=== PATIENT | male | born 1970 | race Caucasian/White ===

== ENCOUNTER 2017-05-05 18:52 | Inpatient (IN) | payer BC ==
[2017-05-05] MEDS ORDERED: Sodium Chloride 0.9% 1,000 ML IV ONE (19:17)
[2017-05-05] MEDS ORDERED: Ondansetron 4 MG/2 ML SDV IVPUSH STA (19:17)
[2017-05-05] MEDS ORDERED: Ondansetron 4 MG/2 ML SDV IVPUSH ONE (19:18)
--- NOTE | 2017-05-05 19:56 | EDM.PDOC ---
ED HPI GENERAL MEDICAL PROBLEM - General Chief Complaint: Gastrointestinal Problem Stated Complaint: DEHYDRATION Time Seen by Provider: 05/05/17 18:59 Source of Information: Reports: Patient, RN Notes Reviewed, Other (Coworker) History Limitations: Reports: No Limitations - History of Present Illness INITIAL COMMENTS - FREE TEXT/NARRATIVE: The patient states that he was seen at [facility] for upper abdominal pain on 04/27/2017. He states that he was given an IV banana bag, then discharged. He states that he was seen a second time at the [facility] this past Wednesday, , for continued upper abdominal pain. He states that blood work was performed, likely urine, a CT scan of the abdomen and pelvis, and an ultrasound of the right upper quadrant. He states that he was told that his gallbladder is enlarged, and they recommended that he follow-up with a surgeon. He states that he has been experiencing nausea and vomiting, muscle cramps, and shakiness since 05/02/2017. He states he had a syncopal episode today. He reports that he has had constipation. He denies diarrhea or urinary symptoms. No recent fever. The patient states that his symptoms are somewhat similar to when he had alcohol -induced pancreatitis in 2011. The patient takes Suboxone for opioid addiction. He states that he has been weaning himself down. He is prescribed 8 mg tablets, instructed to take three quarters of a pill daily, but he has self-decreased his daily dose to 1/4 to 1/ 3 of a tablet daily for the past month. He states, however, that due to perspiration, the tablets have dissolved in his pocket, and he does not know how many tablets he has remaining. He also states that he has vomited after taking his daily dose, and that he has therefore taken additional doses. For this reason, he Here in the ED, the patient is noted to be tremulous, and his oxygen saturation is 100% on room air. When asked about his drinking, the patient reports that he has been drinking heavily for about a week, excluding this past 05/01/2017, but including Wednesday and Wednesday, 05/03/2017. He has been into inpatient alcohol treatment for 21 days each, twice around 6 years ago, but he does not attend any outpatient alcohol treatment. He has never been hospitalized for his alcoholism, other than pancreatitis, and he has never had DTs. - Related Data Allergies Allergy/AdvReac Type Severity Reaction Status Date / Time morphine Allergy Vomiting Verified 05/05/17 19:01 Home Meds: Home Meds Buprenorphine HCl [Buprenorphine] 2 mg SL DAILY 05/05/17 [History] Past Medical History Gastrointestinal History: Reports: GERD Psychiatric History: Reports: Addiction (opioids), Anxiety - Past Surgical History GI Surgical History: Reports: Appendectomy Musculoskeletal Surgical History: Reports: Other (See Below) (RUE repair) Social & Family History - Tobacco Use Smoking Status *Q: Never Smoker - Caffeine Use Caffeine Use: Reports: None - Alcohol Use Alcohol Use History: Yes Alcohol Use Frequency: Binges - Recreational Drug Use Recreational Drug Use: Yes Drug Use in Last 12 Months: No Recreational Drug Type: Reports: Other (see below) (Opioids) - Living Situation & Occupation Living situation: Reports: , with Spouse, with Family (Daughter) 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 Denies: Diarrhea : Reports: No Symptoms. Denies: Dysuria Musculoskeletal: Reports: No Symptoms Skin: Reports: No Symptoms Neurological: Reports: No Symptoms Psychiatric: Reports: Anxiety Hematologic/Lymphatic: Reports: No Symptoms Immunologic: Reports: No Symptoms ED EXAM, GENERAL - Physical Exam Exam: See Below Exam Limited By: No Limitations General Appearance: Alert, WD/WN, Moderate Distress (Tremulousness, diaphoresis , halting speech) Eye Exam: Bilateral Eye: Normal Inspection Ears: Normal External Exam, Hearing Grossly Normal Nose: Normal Inspection, No Blood Throat/Mouth: Normal Inspection, Normal Lips, Normal Voice, No Airway Compromise Head: Atraumatic, Normocephalic Neck: Normal Inspection, Full Range of Motion Respiratory/Chest: No Respiratory Distress, Lungs Clear, Normal Breath Sounds, No Accessory Muscle Use Cardiovascular: Normal Peripheral Pulses, Regular Rate, Rhythm, No Gallop, No JVD, No Murmur, No Rub Peripheral Pulses: 4+: Radial (L), Radial (R) GI/Abdominal: Normal Bowel Sounds, Soft, Non-Tender (Including right upper quadrant and epigastric regions), No Organomegaly, No Distention, No Abnormal Bruit, No Mass (Male) Exam: Deferred Rectal (Males) Exam: Deferred Back Exam: Normal Inspection, Full Range of Motion. No: CVA Tenderness (L), CVA Tenderness (R) Extremities: Normal Inspection, Normal Range of Motion, No Pedal Edema, Normal Capillary Refill Neurological: Alert, Oriented, Normal Cognition, No Motor/Sensory Deficits, Other (Tremulous) Psychiatric: Normal Affect, Anxious Skin Exam: Warm, Intact, Normal Color, No Rash, Diaphoretic Lymphatic: No Adenopathy Course - Vital Signs Last Recorded V/S: Last Vital Signs Temp 36.7 C 05/05/17 19:02 Pulse 81 05/05/17 19:02 Resp BP 162/106 H 05/05/17 19:02 Pulse Ox 100 05/05/17 19:02 Orthostatic Blood Pressure [ 146/100 Standing] Orthostatic Blood Pressure [ 149/96 Sitting] Orthostatic Blood Pressure [ 139/94 Supine] - Orders/Labs/Meds Orders: Active Orders 24 hr Category Date Time Status Admission Status [Patient Status] [ADT] Routine ADT 05/05/17 22:30 Active Orthostatic Vital Signs [RC] STAT Care 05/05/17 19:16 Active Labs: Laboratory Tests 05/05/17 05/05/17 05/05/17 Range/Units 19:20 19:20 19:22 WBC 4.21 L (4.23-9.07) K/mm3 RBC 4.68 (4.63-6.08) M/mm3 Hgb 13.8 (13.7-17.5) gm/L Hct 39.8 L (40.1-51.0) % MCV 85.0 (79.0-92.2) fl MCH 29.5 (25.7-32.2) pg MCHC 34.7 (32.2-35.5) g/dl RDW Std Deviation 40.5 (35.1-43.9) fL Plt Count 78 L (163-337) K/mm3 MPV 9.8 (9.4-12.3) fl Neutrophils % (Manual) 83 H (40-60) % Band Neutrophils % 0 (0-10) % Lymphocytes % (Manual) 8 L (20-40) % Atypical Lymphs % 0 % Monocytes % (Manual) 8 (2-10) % Eosinophils % (Manual) 0 L (0.8-7.0) % Basophils % (Manual) 1 (0.2-1.2) Platelet Estimate Decreased Plt Morphology Comment Normal RBC Morph Comment Not Reportable Puncture Site Lt radial ABG pH 7.50 H (7.35-7.45) ABG pCO2 30.5 L (35.0-45.0) mmHg ABG pO2 89.0 (80.0-100.0) mmHg ABG HCO3 23.5 (22.0-26.0) meq/L ABG O2 Saturation 97.9 H (96.0-97.0) % ABG Base Excess 1.4 (-2-2.0) Panfilo Test Positive A-a Gradient 7 mmHg FiO2 21.00 (21.00-100.00) % Sodium 135 L (136-145) mEq/L Potassium 3.9 (3.5-5.1) mEq/L Chloride 97 L (98-107) mEq/L Carbon Dioxide 25 (21-32) mEq/L Anion Gap 16.9 H (5-15) BUN 19 H (7-18) mg/dL Creatinine 0.7 (0.7-1.3) mg/dL Est Cr Clr Drug Dosing TNP Estimated GFR (MDRD) > 60 (>60) mL/min BUN/Creatinine Ratio 27.1 H (14-18) Glucose 140 H (74-106) mg/dL Lactic Acid (0.4-2.0) mmol/L Calcium 9.7 (8.5-10.1) mg/dL Total Bilirubin 1.0 (0.2-1.0) mg/dL AST 70 H (15-37) U/L ALT 77 H (16-63) U/L Alkaline Phosphatase 216 H (46-116) U/L Total Protein 8.5 H (6.4-8.2) g/dl Albumin 4.9 (3.4-5.0) g/dl Globulin 3.6 gm/dL Albumin/Globulin Ratio 1.4 (1-2) Lipase 44 L (73-393) U/L Urine Color (Yellow) Urine Appearance (Clear) Urine pH (5.0-8.0) Ur Specific [place] (1.005-1.030) Urine Protein (Negative) Urine Glucose (UA) (Negative) Urine Ketones (Negative) Urine Occult Blood (Negative) Urine Nitrite (Negative) Urine Bilirubin (Negative) Urine Urobilinogen (0.2-1.0) Ur Leukocyte Esterase (Negative) Urine RBC (0-5) /hpf Urine WBC (0-5) /hpf Ur Epithelial Cells (0-5) /hpf Urine Bacteria (FEW) /hpf Urine Mucus (FEW) /hpf Urine Opiates Screen (NEGATIVE) Ur Buprenorphine Scrn (NEGATIVE) Ur Oxycodone Screen (NEGATIVE) Urine Methadone Screen (NEGATIVE) Ur Propoxyphene Screen (NEGATIVE) Ur Barbiturates Screen (NEGATIVE) Ur Tricyclics Screen (NEGATIVE) Ur Phencyclidine Scrn (NEGATIVE) Ur Amphetamine Screen (NEGATIVE) U Methamphetamines Scrn (NEGATIVE) U Benzodiazepines Scrn (NEGATIVE) U Cocaine Metab Screen (NEGATIVE) U Marijuana (THC) Screen (NEGATIVE) Ethyl Alcohol 0.00 (0.00) gm% 05/05/17 05/05/17 05/05/17 Range/Units 19:30 19:40 19:40 WBC (4.23-9.07) K/mm3 RBC (4.63-6.08) M/mm3 Hgb (13.7-17.5) gm/L Hct (40.1-51.0) % MCV (79.0-92.2) fl MCH (25.7-32.2) pg MCHC (32.2-35.5) g/dl RDW Std Deviation (35.1-43.9) fL Plt Count (163-337) K/mm3 MPV (9.4-12.3) fl Neutrophils % (Manual) (40-60) % Band Neutrophils % (0-10) % Lymphocytes % (Manual) (20-40) % Atypical Lymphs % % Monocytes % (Manual) (2-10) % Eosinophils % (Manual) (0.8-7.0) % Basophils % (Manual) (0.2-1.2) Platelet Estimate Plt Morphology Comment RBC Morph Comment Puncture Site ABG pH (7.35-7.45) ABG pCO2 (35.0-45.0) mmHg ABG pO2 (80.0-100.0) mmHg ABG HCO3 (22.0-26.0) meq/L ABG O2 Saturation (96.0-97.0) % ABG Base Excess (-2-2.0) Panfilo Test A-a Gradient mmHg FiO2 (21.00-100.00) % Sodium (136-145) mEq/L Potassium (3.5-5.1) mEq/L Chloride (98-107) mEq/L Carbon Dioxide (21-32) mEq/L Anion Gap (5-15) BUN (7-18) mg/dL Creatinine (0.7-1.3) mg/dL Est Cr Clr Drug Dosing Estimated GFR (MDRD) (>60) mL/min BUN/Creatinine Ratio (14-18) Glucose (74-106) mg/dL Lactic Acid 0.8 (0.4-2.0) mmol/L Calcium (8.5-10.1) mg/dL Total Bilirubin (0.2-1.0) mg/dL AST (15-37) U/L ALT (16-63) U/L Alkaline Phosphatase (46-116) U/L Total Protein (6.4-8.2) g/dl Albumin (3.4-5.0) g/dl Globulin gm/dL Albumin/Globulin Ratio (1-2) Lipase (73-393) U/L Urine Color Ivy H (Yellow) Urine Appearance Clear (Clear) Urine pH 6.0 (5.0-8.0) Ur Specific [place] > or = 1.030 (1.005-1.030) Urine Protein 1+ H (Negative) Urine Glucose (UA) Negative (Negative) Urine Ketones 2+ H (Negative) Urine Occult Blood Negative (Negative) Urine Nitrite Negative (Negative) Urine Bilirubin 1+ H (Negative) Urine Urobilinogen 0.2 (0.2-1.0) Ur Leukocyte Esterase Negative (Negative) Urine RBC 0-5 (0-5) /hpf Urine WBC 0-5 (0-5) /hpf Ur Epithelial Cells 0-5 (0-5) /hpf Urine Bacteria Few (FEW) /hpf Urine Mucus Moderate H (FEW) /hpf Urine Opiates Screen Presumptive positive H (NEGATIVE) Ur Buprenorphine Scrn Presumptive positive H (NEGATIVE) Ur Oxycodone Screen Negative (NEGATIVE) Urine Methadone Screen Negative (NEGATIVE) Ur Propoxyphene Screen Negative (NEGATIVE) Ur Barbiturates Screen Negative (NEGATIVE) Ur Tricyclics Screen Negative (NEGATIVE) Ur Phencyclidine Scrn Negative (NEGATIVE) Ur Amphetamine Screen Negative (NEGATIVE) U Methamphetamines Scrn Negative (NEGATIVE) U Benzodiazepines Scrn Negative (NEGATIVE) U Cocaine Metab Screen Negative (NEGATIVE) U Marijuana (THC) Screen Negative (NEGATIVE) Ethyl Alcohol (0.00) gm% Meds: Medications Discontinued Medications Generic Name Dose Route Start Last Admin Trade Name Freq PRN Reason Stop Dose Admin Sodium Chloride 1,000 mls @ 999 mls/hr 05/05/17 19:17 05/05/17 19:28 Normal Saline IV 05/05/17 20:17 999 mls/hr ONETIME ONE Administration Ondansetron HCl 4 mg 05/05/17 19:17 05/05/17 19:28 Zofran IVPUSH 05/05/17 19:18 4 mg ONETIME STA Administration Ondansetron HCl 4 mg 05/05/17 19:18 05/05/17 19:42 Zofran IVPUSH 05/05/17 19:19 4 mg ONETIME ONE Administration - Re-Assessments/Exams Free Text/Narrative Re-Assessment/Exam: 05/05/17 19:56 The patient is not orthostatic, however, he reported dizziness when he stood. The patient's ABG represents an acute respiratory alkalosis. 05/05/17 22:16 Test results discussed with the patient. Today's workup confirms hyperventilation, but the patient is not dehydrated or intravascularly depleted. There is no evidence for pancreatitis, and with a benign abdominal exam, I do not suspect acute cholecystitis. I suspect that the patient may be suffering from a combination of alcohol withdrawal, opioid withdrawal, and untreated anxiety, with the predominance of his symptoms due to alcohol withdrawal. I discussed his case with Dr. Gonzalez, who is willing to admit him for alcohol withdrawal, however, if he is admitted, he will receive IV fluid, Zofran, and ( likely) a benzodiazepine, but he would not be receiving Suboxone or other opioids. Alternatively, I offered to discharge the patient home with a prescription for Zofran, which would allow him to eat, drink, and take his own Suboxone. The patient admitted that he is nearly out of Suboxone, and asked if I could prescribe him additional, which I cannot. The patient states that he does not have a ride until tomorrow, and is therefore willing to be admitted overnight. 05/05/17 22:29 Case again discussed with Dr. Gonzalez at 22:25. She will place the patient into observation. Departure - Departure Time of Disposition: 22:29 Disposition: Refer to Observation Condition: Fair Clinical Impression: Alcohol withdrawal, Opioid withdrawal, Hyperventilation syndrome - Discharge Information Referrals: PCP,None [Primary Care Provider] - - My Orders Last 24 Hours: My Active Orders 05/05/17 19:16 Orthostatic Vital Signs [RC] STAT 05/05/17 22:30 Admission Status [Patient Status] [ADT] Routine - Assessment/Plan Last 24 Hours: My Active Orders 05/05/17 19:16 Orthostatic Vital Signs [RC] STAT 05/05/17 22:30 Admission Status [Patient Status] [ADT] Routine
[2017-05-05] MEDS ORDERED: chlordiazePOXIDE 25 MG Cap PO ONE (23:21)
[2017-05-05] MEDS ORDERED: MVI, Adult with Vitamin K 10 ML SDV IV ONE (23:36)
[2017-05-05] MEDS: LORazepam 2 MG/ML MDV IVPUSH SCH (23:37)
[2017-05-05] MEDS ORDERED: MVI, Adult with Vitamin K 10 ML in Sodium Chloride 0.9% 1,000 ML IV SCH ×2 (23:45)
[2017-05-06] MEDS ORDERED: Sodium Chloride 0.9% 1,000 ML ONE (00:36)
[2017-05-06] MEDS: cloNIDine 0.1 MG Tab PO SCH ×4 (00:52→21:35)
[2017-05-06] MEDS: LORazepam 2 MG/ML MDV IVPUSH SCH ×6 (00:53→07:27)
[2017-05-06] MEDS ORDERED: Sodium Chloride 0.9% 1,000 ML IV SCH (06:29)
[2017-05-06] MEDS ORDERED: Metoprolol Tartrate 5 MG/5 ML SDV IVPUSH PRN (08:38)
[2017-05-06] MEDS ORDERED: Enoxaparin 40 MG/0.4 ML Syringe SUBCUT SCH (09:00)
[2017-05-06] MEDS ORDERED: chlordiazePOXIDE 25 MG Cap PO SCH (09:00)
[2017-05-06] MEDS: Folic Acid 1 MG Tab PO SCH (09:32)
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
[2017-05-06] MEDS ORDERED: Magnesium Sulfate/Water 2 GM in Premix Bag 1 BAG IV ONE ×2 (11:18→18:00)
[2017-05-06] MEDS ORDERED: chlordiazePOXIDE 25 MG Cap PO ONE (12:25)
[2017-05-06] MEDS: LORazepam 1 MG Tab PO SCH ×3 (12:30→20:48)
[2017-05-06] MEDS: chlordiazePOXIDE 25 MG Cap PO SCH ×2 (16:08→20:48)
[2017-05-06] MEDS: Thiamine 100 MG Tab PO SCH (20:48)
[2017-05-06] MEDS ORDERED: Ondansetron 4 MG Tab.DIS PO SCH (21:30)
[2017-05-06] MEDS: Ondansetron 4 MG Tab.DIS PO PRN (21:35)
[2017-05-07] MEDS: LORazepam 1 MG Tab PO SCH (00:06)
[2017-05-07] MEDS: cloNIDine 0.1 MG Tab PO SCH ×4 (01:45→21:18)
[2017-05-07] MEDS: chlordiazePOXIDE 25 MG Cap PO SCH ×3 (08:14→21:17)
[2017-05-07] MEDS: Folic Acid 1 MG Tab PO SCH (08:15)
[2017-05-07] MEDS ORDERED: Magnesium Sulfate/Water 2 GM in Premix Bag 1 BAG IV ONE (09:45)
[2017-05-07] MEDS ORDERED: Ibuprofen 600 MG Tab PO PRN (10:21)
[2017-05-07] MEDS: Potassium Chloride 20 MEQ Tab.ER PO SCH ×3 (10:24→21:18)
[2017-05-07] MEDS: Magnesium Oxide 400 MG Tab PO SCH ×2 (10:24→21:18)
[2017-05-07] MEDS: Ondansetron 4 MG Tab.DIS PO PRN (16:50)
[2017-05-07] MEDS: Sodium Chloride 0.9% 1,000 ML IV SCH ×3 (17:27→19:42)
[2017-05-07] MEDS: HYDROmorphone 0.5 MG/0.5 ML Syringe IVPUSH PRN ×4 (17:35→23:32)
--- NOTE | 2017-05-07 18:14 | PCM.PN ---
- General Info Date of Service: 05/07/17 Functional Status: Reports: ambulating, urinating - Review of Systems General: Reports: Weakness HEENT: Reports: no symptoms Pulmonary: Reports: no symptoms Cardiovascular: Reports: No Symptoms Gastrointestinal: Reports: No symptoms Genitourinary: Reports: no symptoms Musculoskeletal: Reports: no symptoms Skin: Reports: no symptoms Neurological: Reports: No Symptoms Psychiatric: Reports: confusion, anxiety - Patient Data Vitals - most recent: Last Vital Signs Temp 36.7 C 05/07/17 16:00 Pulse 60 05/07/17 12:00 Resp 18 05/07/17 16:00 BP 131/99 H 05/07/17 16:00 Pulse Ox 100 05/07/17 16:00 Weight - most recent: 81.647 kg I&O - last 24 hours: Intake & Output 05/07/17 05/07/17 05/07/17 06:59 14:59 22:59 Intake Total 500 420 400 Balance 500 420 400 Lab Results last 24 hrs: Laboratory Results - last 24 hr 05/07/17 Range/Units 13:10 Sodium 134 L (136-145) mEq/L Potassium 3.5 (3.5-5.1) mEq/L Chloride 99 (98-107) mEq/L Carbon Dioxide 26 (21-32) mEq/L Anion Gap 12.5 (5-15) BUN 13 (7-18) mg/dL Creatinine 0.9 (0.7-1.3) mg/dL Est Cr Clr Drug Dosing 103.64 mL/min Estimated GFR (MDRD) > 60 (>60) mL/min BUN/Creatinine Ratio 14.4 (14-18) Glucose 198 H (74-106) mg/dL Calcium 8.8 (8.5-10.1) mg/dL Med Orders - Current: Current Medications Chlordiazepoxide HCl (Librium) 50 mg PO TID [facility] Last Admin: 05/07/17 16:46 Dose: 50 mg Clonidine HCl (Catapres) 0.1 mg PO Q12HR [facility] Last Admin: 05/07/17 10:07 Dose: Not Given Folic Acid (Folic Acid) 1 mg PO DAILY [facility] Last Admin: 05/07/17 08:15 Dose: 1 mg Hydromorphone HCl (Dilaudid) 0.5 mg IVPUSH Q2H PRN PRN Reason: Abdominal Pain Last Admin: 05/07/17 17:35 Dose: 0.5 mg Sodium Chloride (Normal Saline) 1,000 mls @ 999 mls/hr IV ASDIRECTED [facility] Stop: 05/08/17 18:16 Last Admin: 05/07/17 17:27 Dose: 999 mls/hr Ibuprofen (Motrin) 600 mg PO Q8H PRN PRN Reason: PAIN Last Admin: 05/07/17 10:30 Dose: 600 mg Lorazepam (Ativan) 0 mg IVPUSH ASDIRECTED [facility] PRN Reason: Protocol Last Admin: 05/06/17 07:27 Dose: 2 mg Lorazepam (Ativan) 1 - 2 mg PO ASDIRECTED [facility] PRN Reason: Protocol Last Admin: 05/07/17 00:06 Dose: 2 mg Magnesium Oxide (Magnesium Oxide) 400 mg PO BID [facility] Last Admin: 05/07/17 10:24 Dose: 400 mg Nicotine (Habitrol) 21 mg TRDERM DAILY [facility] Ondansetron HCl (Zofran Odt) 4 mg PO Q8H PRN PRN Reason: Nausea/Vomiting Last Admin: 05/07/17 16:50 Dose: 4 mg Pantoprazole Sodium (Protonix) 40 mg PO DAILY@0700 [facility] Potassium Chloride (Klor-Con M20) 40 meq PO TID [facility] Stop: 05/08/17 10:01 Last Admin: 05/07/17 16:47 Dose: 40 meq Thiamine HCl (Vitamin B-1) 100 mg PO BEDTIME [facility] Last Admin: 05/06/17 20:48 Dose: 100 mg Discontinued Medications Chlordiazepoxide HCl (Librium) 25 mg PO ONETIME ONE Stop: 05/05/17 23:22 Last Admin: 05/05/17 23:37 Dose: 25 mg Chlordiazepoxide HCl (Librium) 25 mg PO TID [facility] Last Admin: 05/06/17 08:20 Dose: 25 mg Chlordiazepoxide HCl (Librium) 25 mg PO STAT ONE Stop: 05/06/17 12:26 Last Admin: 05/06/17 12:39 Dose: 25 mg Clonidine HCl (Catapres) 0.1 mg PO Q8H [facility] Last Admin: 05/07/17 08:19 Dose: Not Given Enoxaparin Sodium (Lovenox) 40 mg SUBCUT DAILY [facility] Last Admin: 05/06/17 09:32 Dose: Not Given Sodium Chloride (Normal Saline) 1,000 mls @ 999 mls/hr IV ONETIME ONE Stop: 05/05/17 20:17 Last Admin: 05/05/17 19:28 Dose: 999 mls/hr Sodium Chloride (Normal Saline) 1,000 mls @ 150 mls/hr IV ASDIRECTED [facility] Multivitamins/Minerals 10 ml/ (Sodium Chloride) 1,010 mls @ 150 mls/hr IV ASDIRECTED [facility] Stop: 05/06/17 06:28 Last Admin: 05/06/17 00:52 Dose: 150 mls/hr Sodium Chloride (Normal Saline) Confirm Administered Dose 1,000 mls @ as directed .ROUTE .STK-MED ONE Stop: 05/06/17 00:37 Last Admin: 05/06/17 00:56 Dose: Not Given Magnesium Sulfate 2 gm/ Premix 50 mls @ 25 mls/hr IV ONETIME ONE Stop: 05/06/17 13:17 Last Admin: 05/06/17 12:01 Dose: Not Given Magnesium Sulfate 2 gm/ Premix 50 mls @ 25 mls/hr IV ONETIME ONE Stop: 05/06/17 19:59 Magnesium Sulfate 2 gm/ Premix 50 mls @ 25 mls/hr IV ONETIME ONE Stop: 05/07/17 11:44 Metoprolol Tartrate (Lopressor) 5 mg IVPUSH Q4H PRN PRN Reason: heart rate Multivitamins/Minerals (M.V.I. Adult) 10 ml IV ONETIME ONE Stop: 05/05/17 23:37 Ondansetron HCl (Zofran) 4 mg IVPUSH ONETIME STA Stop: 05/05/17 19:18 Last Admin: 05/05/17 19:28 Dose: 4 mg Ondansetron HCl (Zofran) 4 mg IVPUSH ONETIME ONE Stop: 05/05/17 19:19 Last Admin: 05/05/17 19:42 Dose: 4 mg Ondansetron HCl (Zofran Odt) 4 mg PO Q8H [facility] - Exam Quality Assessment: DVT prophylaxis General: alert, oriented, no acute distress HEENT: Pupils equal, Pupils reactive, EOMI Neck: supple, trachea midline Lungs: Normal respiratory effort Cardiovascular: Regular Rate Abdomen: bowel sounds present, soft, no tenderness, no distension (Male) Exam: Deferred Back Exam: Normal Inspection Extremities: normal pulses Skin: warm Neurological: no new focal deficit Psy/Mental Status: alert, anxious - Problem List & Annotations (1) Alcohol withdrawal SNOMED Code(s): 261482338 Status: Acute Current Visit: Yes (2) Hyperventilation syndrome SNOMED Code(s): 639842824 Status: Acute Current Visit: Yes (3) Opioid withdrawal SNOMED Code(s): 77253737 Status: Acute Current Visit: Yes (4) Abdominal pain SNOMED Code(s): 80940184 Code(s): R10.9 - UNSPECIFIED ABDOMINAL PAIN Status: Acute Current Visit: No (5) Hypertension SNOMED Code(s): 74497240 Code(s): I10 - ESSENTIAL (PRIMARY) HYPERTENSION Status: Acute Current Visit: No (6) Right upper quadrant abdominal pain SNOMED Code(s): 461875490 Code(s): R10.11 - RIGHT UPPER QUADRANT PAIN Status: Acute Current Visit: No (7) Thrombocytopenia SNOMED Code(s): 673382754 Code(s): D69.6 - THROMBOCYTOPENIA, UNSPECIFIED Status: Acute Current Visit: No - Problem List Review Problem List Initiated/Reviewed/Updated: Yes - My Orders Last 24 Hours: My Active Orders 05/07/17 09:00 cloNIDine [Catapres] 0.1 mg PO Q12HR 05/07/17 10:00 Potassium Chloride [Klor-Con M20] 40 meq PO TID 05/07/17 10:15 Magnesium Oxide 400 mg PO BID 05/07/17 10:21 Ibuprofen [Motrin] 600 mg PO Q8H PRN 05/07/17 17:14 HYDROmorphone [Dilaudid] 0.5 mg IVPUSH Q2H PRN 05/07/17 17:15 Sodium Chloride 0.9% [Normal Saline] 1,000 ml IV ASDIRECTED 05/07/17 18:00 Nicotine [Habitrol] 21 mg TRDERM DAILY 05/07/17 Dinner Regular Diet [DIET] 05/08/17 10:30 Pantoprazole [ProTONIX] 40 mg PO DAILY@69905/10/17 07:00 CBC W/O DIFF,HEMOGRAM [HEME] MOTH@05/13/17 07:00 CBC W/O DIFF,HEMOGRAM [HEME] MOTH@00 05/17/17 07:00 CBC W/O DIFF,HEMOGRAM [HEME] MOTH@00 05/20/17 07:00 CBC W/O DIFF,HEMOGRAM [HEME] MOTH@00 05/24/17 07:00 CBC W/O DIFF,HEMOGRAM [HEME] MOTH@00 05/27/17 07:00 CBC W/O DIFF,HEMOGRAM [HEME] MOTH@699 - Plan Plan:: Impression: ETOH withdrawal; CIWA was elevated >20; original plan was adjusted after apparent marked withdrawal. Opiod addiction on Suboxone--->query structured program Nicotine addiction Abdominal discomfort--->reportedly abnormal CT abdomen/pelvis Patient reports GB disease, will obtain results. Chronic GERD Plan: CIWA protocol Increase Librium/Ativan as needed. Court Order for 24 hour hold, )patient is unable to make informed decision and wants to leave while actively withdrawing). Appropriate pain meds Folic/Thiamine/MVI IVF Electrolyte replacement Psych/SA consults GI/DVT prophylaxis
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
[2017-05-07] MEDS: Nicotine 21 MG/24 Hr Patch TRDERM SCH (18:22)
[2017-05-07] MEDS: Thiamine 100 MG Tab PO SCH (21:18)
[2017-05-07] MEDS: QUEtiapine 25 MG Tab PO SCH (21:18)
[2017-05-07] MEDS: LORazepam 2 MG/ML MDV IVPUSH SCH (21:19)
[2017-05-08] MEDS: LORazepam 2 MG/ML MDV IVPUSH SCH ×2 (01:14→05:15)
[2017-05-08] MEDS: HYDROmorphone 0.5 MG/0.5 ML Syringe IVPUSH PRN ×4 (01:35→08:39)
[2017-05-08] MEDS: Sodium Chloride 0.9% 1,000 ML IV SCH ×3 (03:19→18:56)
[2017-05-08] MEDS: chlordiazePOXIDE 25 MG Cap PO SCH ×3 (08:38→20:57)
[2017-05-08] MEDS: Nicotine 21 MG/24 Hr Patch TRDERM SCH (08:38)
[2017-05-08] MEDS: Pantoprazole 40 MG Tab.CR PO SCH ×2 (08:38→09:55)
[2017-05-08] MEDS: cloNIDine 0.1 MG Tab PO SCH ×2 (09:30→20:57)
[2017-05-08] MEDS: Folic Acid 1 MG Tab PO SCH (09:31)
[2017-05-08] MEDS: Potassium Chloride 20 MEQ Tab.ER PO SCH (09:31)
[2017-05-08] MEDS: Magnesium Oxide 400 MG Tab PO SCH ×2 (09:31→20:57)
[2017-05-08] MEDS ORDERED: HYDROmorphone 1 MG/ML Syringe IVPUSH PRN (10:58)
[2017-05-08] MEDS ORDERED: Ketorolac 30 MG/ML SDV IVPUSH ONE (11:30)
[2017-05-08] MEDS ORDERED: Magnesium Sulfate/Water 2 GM in Premix Bag 1 BAG IV ONE (14:54)
--- NOTE | 2017-05-08 15:04 | PCM.PN ---
- General Info Date of Service: 05/08/17 Functional Status: Reports: pain controlled, tolerating diet, ambulating, urinating - Review of Systems General: Reports: No Symptoms HEENT: Reports: no symptoms Pulmonary: Reports: no symptoms Cardiovascular: Reports: No Symptoms Gastrointestinal: Reports: Abdominal pain (after eating a cheese burger) Genitourinary: Reports: no symptoms Musculoskeletal: Reports: no symptoms Skin: Reports: no symptoms Neurological: Reports: No Symptoms Psychiatric: Reports: no symptoms - Patient Data Vitals - most recent: Last Vital Signs Temp 36.4 C 05/08/17 12:00 Pulse 47 L 05/08/17 12:00 Resp 16 05/08/17 12:00 BP 135/99 H 05/08/17 12:00 Pulse Ox 98 05/08/17 12:00 Weight - most recent: 81.647 kg I&O - last 24 hours: Intake & Output 05/08/17 05/08/17 05/08/17 06:59 14:59 22:59 Intake Total 3354 0 Output Total 900 Balance 2454 0 Med Orders - Current: Current Medications Chlordiazepoxide HCl (Librium) 25 mg PO TID [facility] Last Admin: 05/08/17 14:58 Dose: 25 mg Clonidine HCl (Catapres) 0.1 mg PO Q12HR [facility] Last Admin: 05/08/17 09:30 Dose: 0.1 mg Folic Acid (Folic Acid) 1 mg PO DAILY [facility] Last Admin: 05/08/17 09:31 Dose: 1 mg Sodium Chloride (Normal Saline) 1,000 mls @ 125 mls/hr IV ASDIRECTED [facility] Last Admin: 05/08/17 10:45 Dose: 125 mls/hr Magnesium Sulfate 2 gm/ Premix 50 mls @ 25 mls/hr IV ONETIME ONE Stop: 05/08/17 16:53 Magnesium Sulfate 2 gm/ Premix 50 mls @ 25 mls/hr IV ONETIME ONE Stop: 05/09/17 09:59 Ketorolac Tromethamine (Toradol) 30 mg IVPUSH Q6H [facility] Stop: 05/10/17 11:31 Lorazepam (Ativan) 0 mg IVPUSH ASDIRECTED [facility] PRN Reason: Protocol Last Admin: 05/08/17 05:15 Dose: 1 mg Lorazepam (Ativan) 1 - 2 mg PO ASDIRECTED [facility] PRN Reason: Protocol Last Admin: 05/07/17 00:06 Dose: 2 mg Magnesium Oxide (Magnesium Oxide) 400 mg PO BID [facility] Last Admin: 05/08/17 09:31 Dose: 400 mg Nicotine (Habitrol) 21 mg TRDERM DAILY [facility] Last Admin: 05/08/17 08:38 Dose: 21 mg Ondansetron HCl (Zofran Odt) 4 mg PO Q8H PRN PRN Reason: Nausea/Vomiting Last Admin: 05/07/17 16:50 Dose: 4 mg Pantoprazole Sodium (Protonix) 40 mg PO DAILY@0700 [facility] Last Admin: 05/08/17 09:55 Dose: Not Given Quetiapine Fumarate (Seroquel) 25 mg PO BEDTIME [facility] Last Admin: 05/07/17 21:18 Dose: 25 mg Thiamine HCl (Vitamin B-1) 100 mg PO BEDTIME [facility] Last Admin: 05/07/17 21:18 Dose: 100 mg Discontinued Medications Chlordiazepoxide HCl (Librium) 25 mg PO ONETIME ONE Stop: 05/05/17 23:22 Last Admin: 05/05/17 23:37 Dose: 25 mg Chlordiazepoxide HCl (Librium) 25 mg PO TID [facility] Last Admin: 05/06/17 08:20 Dose: 25 mg Chlordiazepoxide HCl (Librium) 50 mg PO TID [facility] Last Admin: 05/08/17 08:38 Dose: 50 mg Chlordiazepoxide HCl (Librium) 25 mg PO STAT ONE Stop: 05/06/17 12:26 Last Admin: 05/06/17 12:39 Dose: 25 mg Clonidine HCl (Catapres) 0.1 mg PO Q8H [facility] Last Admin: 05/07/17 08:19 Dose: Not Given Enoxaparin Sodium (Lovenox) 40 mg SUBCUT DAILY [facility] Last Admin: 05/06/17 09:32 Dose: Not Given Hydromorphone HCl (Dilaudid) 0.5 mg IVPUSH Q2H PRN PRN Reason: Abdominal Pain Last Admin: 05/08/17 08:39 Dose: 0.5 mg Hydromorphone HCl (Dilaudid) 1 mg IVPUSH Q8H PRN PRN Reason: Abdominal Pain Sodium Chloride (Normal Saline) 1,000 mls @ 999 mls/hr IV ONETIME ONE Stop: 05/05/17 20:17 Last Admin: 05/05/17 19:28 Dose: 999 mls/hr Sodium Chloride (Normal Saline) 1,000 mls @ 150 mls/hr IV ASDIRECTED [facility] Multivitamins/Minerals 10 ml/ (Sodium Chloride) 1,010 mls @ 150 mls/hr IV ASDIRECTED [facility] Stop: 05/06/17 06:28 Last Admin: 05/06/17 00:52 Dose: 150 mls/hr Sodium Chloride (Normal Saline) Confirm Administered Dose 1,000 mls @ as directed .ROUTE .STK-MED ONE Stop: 05/06/17 00:37 Last Admin: 05/06/17 00:56 Dose: Not Given Magnesium Sulfate 2 gm/ Premix 50 mls @ 25 mls/hr IV ONETIME ONE Stop: 05/06/17 13:17 Last Admin: 05/06/17 12:01 Dose: Not Given Magnesium Sulfate 2 gm/ Premix 50 mls @ 25 mls/hr IV ONETIME ONE Stop: 05/06/17 19:59 Magnesium Sulfate 2 gm/ Premix 50 mls @ 25 mls/hr IV ONETIME ONE Stop: 05/07/17 11:44 Sodium Chloride (Normal Saline) 1,000 mls @ 999 mls/hr IV ASDIRECTED [facility] Stop: 05/08/17 18:16 Last Admin: 05/08/17 03:19 Dose: 125 mls/hr Ibuprofen (Motrin) 600 mg PO Q8H PRN PRN Reason: PAIN Last Admin: 05/07/17 10:30 Dose: 600 mg Ketorolac Tromethamine (Toradol) 60 mg IVPUSH ONETIME ONE Stop: 05/08/17 11:31 Last Admin: 05/08/17 11:26 Dose: 60 mg Metoprolol Tartrate (Lopressor) 5 mg IVPUSH Q4H PRN PRN Reason: heart rate Multivitamins/Minerals (M.V.I. Adult) 10 ml IV ONETIME ONE Stop: 05/05/17 23:37 Ondansetron HCl (Zofran) 4 mg IVPUSH ONETIME STA Stop: 05/05/17 19:18 Last Admin: 05/05/17 19:28 Dose: 4 mg Ondansetron HCl (Zofran) 4 mg IVPUSH ONETIME ONE Stop: 05/05/17 19:19 Last Admin: 05/05/17 19:42 Dose: 4 mg Ondansetron HCl (Zofran Odt) 4 mg PO Q8H [facility] Potassium Chloride (Klor-Con M20) 40 meq PO TID [facility] Stop: 05/08/17 10:01 Last Admin: 05/08/17 09:31 Dose: 40 meq - Exam Quality Assessment: supplemental oxygen, DVT prophylaxis General: alert, oriented, cooperative, no acute distress HEENT: Pupils equal, Pupils reactive, EOMI Neck: supple, trachea midline Lungs: Normal respiratory effort Cardiovascular: Regular Rate Abdomen: bowel sounds present, soft, no tenderness, no distension (Male) Exam: Deferred Back Exam: Normal Inspection Extremities: no edema, normal pulses Skin: warm Neurological: no new focal deficit, normal gait, normal speech Psy/Mental Status: alert, normal affect, normal mood - Problem List & Annotations (1) Alcohol withdrawal SNOMED Code(s): 302710019 Status: Acute Current Visit: Yes (2) Hyperventilation syndrome SNOMED Code(s): 004742839 Status: Acute Current Visit: Yes (3) Opioid withdrawal SNOMED Code(s): 74677545 Status: Acute Current Visit: Yes (4) Abdominal pain SNOMED Code(s): 21132707 Code(s): R10.9 - UNSPECIFIED ABDOMINAL PAIN Status: Acute Current Visit: No (5) Hypertension SNOMED Code(s): 88502034 Code(s): I10 - ESSENTIAL (PRIMARY) HYPERTENSION Status: Acute Current Visit: No (6) Right upper quadrant abdominal pain SNOMED Code(s): 682432457 Code(s): R10.11 - RIGHT UPPER QUADRANT PAIN Status: Acute Current Visit: No (7) Thrombocytopenia SNOMED Code(s): 525219556 Code(s): D69.6 - THROMBOCYTOPENIA, UNSPECIFIED Status: Acute Current Visit: No - Problem List Review Problem List Initiated/Reviewed/Updated: Yes - My Orders Last 24 Hours: My Active Orders 05/07/17 18:00 Nicotine [Habitrol] 21 mg TRDERM DAILY 05/07/17 21:00 QUEtiapine [SEROquel] 25 mg PO BEDTIME 05/07/17 Dinner Regular Diet [DIET] 05/08/17 03:30 Sodium Chloride 0.9% [Normal Saline] 1,000 ml IV ASDIRECTED 05/08/17 10:30 Pantoprazole [ProTONIX] 40 mg PO DAILY@0700 05/08/17 10:46 chlordiazePOXIDE [Librium] 25 mg PO TID 05/08/17 14:54 Magnesium Sulfate/Water [Magnesium Sulfate 2 GM in Water 50 ML] 2 gm Premix Bag 1 bag IV ONETIME 05/08/17 17:30 Ketorolac [Toradol] 30 mg IVPUSH Q6H 05/09/17 05:00 BMP [BASIC METABOLIC PANEL,BMP] [CHEM] DAILY CBC WITH AUTO DIFF [HEME] DAILY MAGNESIUM [CHEM] DAILY 05/09/17 08:00 Magnesium Sulfate/Water [Magnesium Sulfate 2 GM in Water 50 ML] 2 gm Premix Bag 1 bag IV ONETIME 05/10/17 05:00 BMP [BASIC METABOLIC PANEL,BMP] [CHEM] DAILY CBC WITH AUTO DIFF [HEME] DAILY MAGNESIUM [CHEM] DAILY 05/11/17 05:00 BMP [BASIC METABOLIC PANEL,BMP] [CHEM] DAILY CBC WITH AUTO DIFF [HEME] DAILY MAGNESIUM [CHEM] DAILY 05/12/17 05:00 BMP [BASIC METABOLIC PANEL,BMP] [CHEM] DAILY CBC WITH AUTO DIFF [HEME] DAILY MAGNESIUM [CHEM] DAILY - Plan Plan:: Impression: ETOH withdrawal; CIWA was elevated >20; original plan was adjusted after apparent marked withdrawal. Opiod addiction on Suboxone--->query structured program Nicotine addiction Abdominal discomfort--->reportedly abnormal CT abdomen/pelvis Patient reports GB disease, will obtain results. Chronic GERD Plan: CIWA protocol Taper off librium and pain meds=NSAIDS only Court Order for 24 hour hold, informed decision and wants to leave while actively withdrawing). Appropriate pain meds Folic/Thiamine/MVI IVF Electrolyte replacement Psych/SA consults GI/DVT prophylaxis
[2017-05-08] MEDS: Ketorolac 30 MG/ML SDV IVPUSH SCH ×2 (17:22→22:36)
[2017-05-08] MEDS: Thiamine 100 MG Tab PO SCH (20:56)
[2017-05-08] MEDS: QUEtiapine 25 MG Tab PO SCH (20:57)
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
[2017-05-09] MEDS: Sodium Chloride 0.9% 1,000 ML IV SCH (02:58)
[2017-05-09] MEDS: Ketorolac 30 MG/ML SDV IVPUSH SCH ×4 (05:32→23:01)
[2017-05-09] MEDS ORDERED: Magnesium Sulfate/Water 2 GM in Premix Bag 1 BAG IV ONE (08:00)
[2017-05-09] MEDS: chlordiazePOXIDE 25 MG Cap PO SCH (08:45)
[2017-05-09] MEDS: cloNIDine 0.1 MG Tab PO SCH (08:45)
[2017-05-09] MEDS: Pantoprazole 40 MG Tab.CR PO SCH (08:45)
[2017-05-09] MEDS: Folic Acid 1 MG Tab PO SCH (08:46)
[2017-05-09] MEDS: Magnesium Oxide 400 MG Tab PO SCH ×2 (08:46→20:30)
[2017-05-09] MEDS: Nicotine 21 MG/24 Hr Patch TRDERM SCH (08:47)
[2017-05-09] MEDS ORDERED: LORazepam 1 MG Tab PO SCH (11:44)
[2017-05-09] MEDS ORDERED: QUEtiapine 25 MG Tab PO SCH (11:45)
--- NOTE | 2017-05-09 12:16 | PCM.PN ---
- General Info Date of Service: 05/09/17 Functional Status: Reports: pain controlled, tolerating diet, ambulating, urinating - Review of Systems General: Reports: No Symptoms HEENT: Reports: no symptoms Pulmonary: Reports: no symptoms Cardiovascular: Reports: No Symptoms Gastrointestinal: Reports: No symptoms Genitourinary: Reports: no symptoms Musculoskeletal: Reports: no symptoms Skin: Reports: no symptoms Neurological: Reports: No Symptoms Psychiatric: Reports: no symptoms - Patient Data Vitals - most recent: Last Vital Signs Temp 36.1 C 05/09/17 12:00 Pulse 86 05/09/17 12:00 Resp 16 05/09/17 12:00 BP 119/83 05/09/17 12:00 Pulse Ox 100 05/09/17 12:00 Weight - most recent: 81.647 kg I&O - last 24 hours: Intake & Output 05/08/17 05/09/17 05/09/17 22:59 06:59 14:59 Intake Total 1040 2969 1620 Output Total 500 500 Balance 540 2969 1120 Lab Results last 24 hrs: Laboratory Results - last 24 hr 05/09/17 05/09/17 Range/Units 05:42 05:42 WBC 2.93 L (4.23-9.07) K/mm3 RBC 3.76 L (4.63-6.08) M/mm3 Hgb 11.4 L (13.7-17.5) gm/L Hct 33.0 L (40.1-51.0) % MCV 87.8 (79.0-92.2) fl MCH 30.3 (25.7-32.2) pg MCHC 34.5 (32.2-35.5) g/dl RDW Std Deviation 41.3 (35.1-43.9) fL Plt Count 92 L (163-337) K/mm3 MPV 9.6 (9.4-12.3) fl Neut % (Auto) 60.1 (34.0-67.9) % Lymph % (Auto) 24.9 (21.8-53.1) % Dawson % (Auto) 13.3 H (5.3-12.2) % Eos % (Auto) 1.4 (0.8-7.0) Baso % (Auto) 0.3 (0.1-1.2) % Neut # (Auto) 1.76 L (1.78-5.38) K/mm3 Lymph # (Auto) 0.73 L (1.32-3.57) K/mm3 Dawson # (Auto) 0.39 (0.30-0.82) K/mm3 Eos # (Auto) 0.04 (0.04-0.54) K/mm3 Baso # (Auto) 0.01 (0.01-0.08) K/mm3 Manual Slide Review Abnormal smear Sodium 140 (136-145) mEq/L Potassium 3.9 (3.5-5.1) mEq/L Chloride 106 (98-107) mEq/L Carbon Dioxide 24 (21-32) mEq/L Anion Gap 13.9 (5-15) BUN 11 (7-18) mg/dL Creatinine 0.8 (0.7-1.3) mg/dL Est Cr Clr Drug Dosing 116.60 mL/min Estimated GFR (MDRD) > 60 (>60) mL/min BUN/Creatinine Ratio 13.8 L (14-18) Glucose 133 H (74-106) mg/dL Calcium 8.4 L (8.5-10.1) mg/dL Magnesium 2.2 (1.8-2.4) mg/dl Med Orders - Current: Current Medications Chlordiazepoxide HCl (Librium) 10 mg PO BID [facility] Folic Acid (Folic Acid) 1 mg PO DAILY [facility] Last Admin: 05/09/17 08:46 Dose: 1 mg Ketorolac Tromethamine (Toradol) 30 mg IVPUSH Q6H [facility] Stop: 05/10/17 11:31 Last Admin: 05/09/17 11:17 Dose: 30 mg Lorazepam (Ativan) 0 mg IVPUSH ASDIRECTED [facility] PRN Reason: Protocol Last Admin: 05/08/17 05:15 Dose: 1 mg Lorazepam (Ativan) 1 mg PO ASDIRECTED [facility] PRN Reason: Protocol Magnesium Oxide (Magnesium Oxide) 400 mg PO BID [facility] Last Admin: 05/09/17 08:46 Dose: 400 mg Nicotine (Habitrol) 21 mg TRDERM DAILY [facility] Last Admin: 05/09/17 08:47 Dose: 21 mg Ondansetron HCl (Zofran Odt) 4 mg PO Q8H PRN PRN Reason: Nausea/Vomiting Last Admin: 05/07/17 16:50 Dose: 4 mg Pantoprazole Sodium (Protonix) 40 mg PO DAILY@0700 [facility] Last Admin: 05/09/17 08:45 Dose: 40 mg Quetiapine Fumarate (Seroquel) 50 mg PO BEDTIME [facility] Thiamine HCl (Vitamin B-1) 100 mg PO BEDTIME [facility] Last Admin: 05/08/17 20:56 Dose: 100 mg Discontinued Medications Chlordiazepoxide HCl (Librium) 25 mg PO ONETIME ONE Stop: 05/05/17 23:22 Last Admin: 05/05/17 23:37 Dose: 25 mg Chlordiazepoxide HCl (Librium) 25 mg PO TID [facility] Last Admin: 05/06/17 08:20 Dose: 25 mg Chlordiazepoxide HCl (Librium) 50 mg PO TID [facility] Last Admin: 05/08/17 08:38 Dose: 50 mg Chlordiazepoxide HCl (Librium) 25 mg PO STAT ONE Stop: 05/06/17 12:26 Last Admin: 05/06/17 12:39 Dose: 25 mg Chlordiazepoxide HCl (Librium) 25 mg PO TID [facility] Last Admin: 05/09/17 08:45 Dose: 25 mg Clonidine HCl (Catapres) 0.1 mg PO Q8H [facility] Last Admin: 05/07/17 08:19 Dose: Not Given Clonidine HCl (Catapres) 0.1 mg PO Q12HR [facility] Last Admin: 05/09/17 08:45 Dose: 0.1 mg Enoxaparin Sodium (Lovenox) 40 mg SUBCUT DAILY [facility] Last Admin: 05/06/17 09:32 Dose: Not Given Hydromorphone HCl (Dilaudid) 0.5 mg IVPUSH Q2H PRN PRN Reason: Abdominal Pain Last Admin: 05/08/17 08:39 Dose: 0.5 mg Hydromorphone HCl (Dilaudid) 1 mg IVPUSH Q8H PRN PRN Reason: Abdominal Pain Sodium Chloride (Normal Saline) 1,000 mls @ 999 mls/hr IV ONETIME ONE Stop: 05/05/17 20:17 Last Admin: 05/05/17 19:28 Dose: 999 mls/hr Sodium Chloride (Normal Saline) 1,000 mls @ 150 mls/hr IV ASDIRECTED [facility] Multivitamins/Minerals 10 ml/ (Sodium Chloride) 1,010 mls @ 150 mls/hr IV ASDIRECTED [facility] Stop: 05/06/17 06:28 Last Admin: 05/06/17 00:52 Dose: 150 mls/hr Sodium Chloride (Normal Saline) Confirm Administered Dose 1,000 mls @ as directed .ROUTE .STK-MED ONE Stop: 05/06/17 00:37 Last Admin: 05/06/17 00:56 Dose: Not Given Magnesium Sulfate 2 gm/ Premix 50 mls @ 25 mls/hr IV ONETIME ONE Stop: 05/06/17 13:17 Last Admin: 05/06/17 12:01 Dose: Not Given Magnesium Sulfate 2 gm/ Premix 50 mls @ 25 mls/hr IV ONETIME ONE Stop: 05/06/17 19:59 Magnesium Sulfate 2 gm/ Premix 50 mls @ 25 mls/hr IV ONETIME ONE Stop: 05/07/17 11:44 Sodium Chloride (Normal Saline) 1,000 mls @ 999 mls/hr IV ASDIRECTED [facility] Stop: 05/08/17 18:16 Last Admin: 05/08/17 03:19 Dose: 125 mls/hr Sodium Chloride (Normal Saline) 1,000 mls @ 125 mls/hr IV ASDIRECTED [facility] Last Admin: 05/09/17 02:58 Dose: 125 mls/hr Magnesium Sulfate 2 gm/ Premix 50 mls @ 25 mls/hr IV ONETIME ONE Stop: 05/08/17 16:53 Last Admin: 05/08/17 15:09 Dose: 25 mls/hr Magnesium Sulfate 2 gm/ Premix 50 mls @ 25 mls/hr IV ONETIME ONE Stop: 05/09/17 09:59 Last Admin: 05/09/17 09:00 Dose: Not Given Ibuprofen (Motrin) 600 mg PO Q8H PRN PRN Reason: PAIN Last Admin: 05/07/17 10:30 Dose: 600 mg Ketorolac Tromethamine (Toradol) 60 mg IVPUSH ONETIME ONE Stop: 05/08/17 11:31 Last Admin: 05/08/17 11:26 Dose: 60 mg Lorazepam (Ativan) 1 - 2 mg PO ASDIRECTED [facility] PRN Reason: Protocol Last Admin: 05/07/17 00:06 Dose: 2 mg Metoprolol Tartrate (Lopressor) 5 mg IVPUSH Q4H PRN PRN Reason: heart rate Multivitamins/Minerals (M.V.I. Adult) 10 ml IV ONETIME ONE Stop: 05/05/17 23:37 Ondansetron HCl (Zofran) 4 mg IVPUSH ONETIME STA Stop: 05/05/17 19:18 Last Admin: 05/05/17 19:28 Dose: 4 mg Ondansetron HCl (Zofran) 4 mg IVPUSH ONETIME ONE Stop: 05/05/17 19:19 Last Admin: 05/05/17 19:42 Dose: 4 mg Ondansetron HCl (Zofran Odt) 4 mg PO Q8H [facility] Potassium Chloride (Klor-Con M20) 40 meq PO TID [facility] Stop: 05/08/17 10:01 Last Admin: 05/08/17 09:31 Dose: 40 meq Quetiapine Fumarate (Seroquel) 25 mg PO BEDTIME [facility] Last Admin: 05/08/17 20:57 Dose: 25 mg - Exam Quality Assessment: DVT prophylaxis General: alert, oriented, cooperative, no acute distress HEENT: Pupils equal, Pupils reactive, EOMI Neck: supple, trachea midline Lungs: Normal respiratory effort Cardiovascular: Regular Rate, Bradycardia Abdomen: bowel sounds present, soft, no tenderness, no distension (Male) Exam: Deferred Back Exam: Normal Inspection Extremities: no edema, normal pulses Skin: warm Neurological: normal gait, normal speech Psy/Mental Status: alert, normal affect, normal mood - Problem List & Annotations (1) Alcohol withdrawal SNOMED Code(s): 359423962 Status: Acute Current Visit: Yes (2) Hyperventilation syndrome SNOMED Code(s): 758976415 Status: Acute Current Visit: Yes (3) Opioid withdrawal SNOMED Code(s): 96806845 Status: Acute Current Visit: Yes (4) Abdominal pain SNOMED Code(s): 97081223 Code(s): R10.9 - UNSPECIFIED ABDOMINAL PAIN Status: Acute Current Visit: No (5) Hypertension SNOMED Code(s): 99933541 Code(s): I10 - ESSENTIAL (PRIMARY) HYPERTENSION Status: Acute Current Visit: No (6) Right upper quadrant abdominal pain SNOMED Code(s): 508240838 Code(s): R10.11 - RIGHT UPPER QUADRANT PAIN Status: Acute Current Visit: No (7) Thrombocytopenia SNOMED Code(s): 592656978 Code(s): D69.6 - THROMBOCYTOPENIA, UNSPECIFIED Status: Acute Current Visit: No - Problem List Review Problem List Initiated/Reviewed/Updated: Yes - My Orders Last 24 Hours: My Active Orders 05/08/17 17:30 Ketorolac [Toradol] 30 mg IVPUSH Q6H 05/08/17 Dinner Cardiac [Heart Healthy Diet] [DIET] 05/09/17 09:43 Up ad Polly [RC] ASDIRECTED 05/09/17 11:44 LORazepam [Ativan] 1 mg PO ASDIRECTED 05/09/17 11:45 QUEtiapine [SEROquel] 50 mg PO BEDTIME 05/10/17 05:00 BMP [BASIC METABOLIC PANEL,BMP] [CHEM] DAILY CBC WITH AUTO DIFF [HEME] DAILY MAGNESIUM [CHEM] DAILY 05/10/17 09:00 chlordiazePOXIDE [Librium] 10 mg PO BID 05/11/17 05:00 BMP [BASIC METABOLIC PANEL,BMP] [CHEM] DAILY CBC WITH AUTO DIFF [HEME] DAILY MAGNESIUM [CHEM] DAILY 05/12/17 05:00 BMP [BASIC METABOLIC PANEL,BMP] [CHEM] DAILY CBC WITH AUTO DIFF [HEME] DAILY MAGNESIUM [CHEM] DAILY - Plan Plan:: Impression: ETOH withdrawal; CIWA was elevated >20; original plan was adjusted after apparent marked withdrawal. Opiod addiction on Suboxone--->query structured program Nicotine addiction Abdominal discomfort--->reportedly abnormal CT abdomen/pelvis Patient reports GB disease, will obtain results. Chronic GERD Plan: CIWA protocol Taper off librium and pain meds=NSAIDS only Court Order for 24 hour hold. GI MD suggestions provided include but not limited to Dr Karla Urias in [place], [place]. Electrolyte replacement SA consult with probable outpatient counseling Follow up with current Suboxone provider or may change to provider in the [place] area. GI/DVT prophylaxis
[2017-05-09] MEDS: Thiamine 100 MG Tab PO SCH (20:30)
[2017-05-10] MEDS: Ketorolac 30 MG/ML SDV IVPUSH SCH ×2 (05:21→11:40)
[2017-05-10] MEDS: Pantoprazole 40 MG Tab.CR PO SCH (06:21)
[2017-05-10] MEDS: Folic Acid 1 MG Tab PO SCH (08:05)
[2017-05-10] MEDS: Magnesium Oxide 400 MG Tab PO SCH (08:05)
[2017-05-10] MEDS: Nicotine 21 MG/24 Hr Patch TRDERM SCH (08:06)
--- NOTE | 2017-05-10 08:19 | CONS ---
CONSULTING PHYSICIAN: Michael Crystal MD DATE OF CONSULTATION: 05/06/2017 IDENTIFICATION: The patient is a 47-year-old male, who is admitted to the inpatient medical unit at [facility] in [place], [place] on 05/05/2017. He is seen for psychiatric evaluation. CHIEF COMPLAINT: "I did a good job for 5 years and then I lost my brother. I went to drinking." HISTORY OF PRESENT ILLNESS: The patient is a 47-year-old male, who is admitted to the inpatient MICU at [facility] on 05/05/2017 after presenting to the emergency room with complaints of nausea and vomiting. It was deemed by the ER staff that the patient was going through alcohol withdrawal. Evidently according to staff, the patient has been drinking about a 5th of whiskey a day for the past 30 days straight. When asked how much he has been drinking, the patient states that he last drank 48 hours ago and he only started drinking "a week and a half ago." He states he has only been drinking "maybe a pint or so" a day over the past [id number] and he states he relapsed because he was feeling bad that his brother killed himself. When asked when his brother took his life, he states "about 2 years ago up in [place]. He hung himself when they found them." He states that he wants to stop drinking and he notes "I know what I did was wrong" and states that it is his intention to get sober again once he is medically stabilized. He states he has had sustaining sobriety of 5 years and he had gone to AA in the past and the AA program has helped him quite a bit. He states his has been pretty upset with him since he started drinking again and he knows that he has to get back on track. He denies any suicidal or homicidal. He denies any psychotic, delusional, or paranoid symptoms. He does not feel that he needs any psychiatric medication at this point in time stating that if he gets sober he will be fine. Main issue at this point in time is "I can still feel a little nausea" and is wondering if something can be done to help in this regard, but otherwise he has no major complaints. MEDICATIONS: At the time of admission, none. Since being placed on the unit, the patient has been given Librium and Ativan and collateral information, and reports the patient does have a history of being on Suboxone therapy for possible opioid dependence. ALLERGIES TO MEDICATIONS: Morphine. PAST MEDICAL HISTORY: Hypertension. REVIEW OF SYSTEMS: Aside from cardiovascular and neuro, all other major organ systems are negative at this point in time for acute difficulties or complications. FAMILY, PSYCHIATRIC, AND CD HISTORY: The patient has a brother who struggled with depression and killed himself back in 2014. PAST PSYCHIATRIC AND CD HISTORY: The patient denies any previous psychiatric hospitalizations. He reports two chemical dependency treatments or detox admissions back in 2009. The patient is unclear, which they were. The patient has gone to and states this has helped him stay sober. His longest sobriety has been for 5 years. States most recently he has been drinking about a pint of whiskey a day. However, collateral information reports that the patient has been drinking a 5th of whiskey a day for the past 30 days. He denies any previous suicide attempts, self-injurious behaviors, or eating disorder history. Denies any abuse issues while being raised. Denies any past psychiatric medication history. SOCIAL HISTORY: The patient was born in [place], [place], raised in [place] and [facility]. He is a 2nd of 5 siblings and 4 brothers. The patient's parents were throughout his childhood and adolescence. Father is a pipe assembly worker and mother worked in a clinic. The patient has been x1 for 27 years. He has 1 son and 2 daughters from the marriage. His works as a financial services rep for the [employer]. The patient himself works out in the [employer]. He lives in [place], [place] working 2 weeks on in the [employer] and goes back home for 2 weeks. He stays in the [place] when he is working on the [employer]. He was in the [facility] for 2 years, received a general discharge. He denies any legal difficulties. 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 He enjoys ATV, walking, and spending time with his grand kids. MENTAL STATUS EXAM: The patient is a 47-year-old jittery white male in no apparent distress. Speech is regular rate and rhythm. The patient is cognitively oriented x3 to person, place, and time. There is no behavioral or psychomotor activities. Again, a little jittery but essentially within normal limits overall. There are no abnormal motor movements or tics observed. Gait and station are not observed. This patient is sitting on bed for the interview. Mood is okay. Affect is again jittery, but cooperative overall for the purposes of the inpatient consult. There is no behavioral or stated evidence of acute suicidal or homicidal ideation or acute psychotic, delusional, or paranoid symptoms. Thought processes are organized overall. There are no acute manic symptoms or loose associations evident. Judgment and insight appear unimpaired at this point in time. Motivation for help appears good. IMPRESSION: [place] I. 1. Alcohol dependence, F10.20. 2. Depression, not otherwise specified, F32.9. 3. Anxiety disorder, not otherwise specified, F41.9. 4. Rule out possible opioid dependence. [place] II: None. [place] III: 1. History of hypertension. 2. Symptoms of alcohol withdrawal. [place] IV: Severe. [place] V: 55. PLAN: 1. Sobriety. 2. AA rep to visit the patient while on inpatient medical unit. 3. Pastoral guidance. 4. CIWA protocol. 5. Thiamine supplementation. 6. Folate acidic supplementation. 7. CD consult. 8. Would recommend inpatient chemical dependency treatment going forward once the patient is medically stabilized if it is deemed that the patient is unable to maintain sobriety on his own by primary treating staff. 9. If the patient is medically stabilized and felt that he can maintain sobriety with the assistance of AA resources, he may be discharged back to the community as no psychiatric intervention appears necessary at this point in time. 10.We will continue follow up with the patient on an as needed basis while he remains on the inpatient MICU. 11.We will follow up with the patient sooner if any complications in the interim. 12.Crisis plan is in place. RACHEAL /[id number]
[2017-05-10] MEDS ORDERED: chlordiazePOXIDE 10 MG Cap PO SCH (09:00)
[2017-05-10] MEDS ORDERED: Magnesium Sulfate/Water 2 GM in Premix Bag 1 BAG IV ONE (09:23)
--- NOTE | 2017-05-10 09:47 | PCM.PN ---
- General Info Date of Service: 05/10/17 - Patient Data Vitals - most recent: Last Vital Signs Temp 36.3 C 05/10/17 07:54 Pulse 43 L 05/10/17 04:00 Resp 14 05/10/17 07:54 BP 142/94 H 05/10/17 07:54 Pulse Ox 98 05/10/17 07:54 Weight - most recent: 83.37 kg I&O - last 24 hours: Intake & Output 05/09/17 05/10/17 05/10/17 22:59 06:59 14:59 Intake Total 120 600 Output Total 300 Balance -180 600 Lab Results last 24 hrs: Laboratory Results - last 24 hr 05/10/17 05/10/17 Range/Units 05:20 05:20 WBC 3.46 L (4.23-9.07) K/mm3 RBC 4.01 L (4.63-6.08) M/mm3 Hgb 12.0 L (13.7-17.5) gm/L Hct 35.5 L (40.1-51.0) % MCV 88.5 (79.0-92.2) fl MCH 29.9 (25.7-32.2) pg MCHC 33.8 (32.2-35.5) g/dl RDW Std Deviation 42.2 (35.1-43.9) fL Plt Count 123 L (163-337) K/mm3 MPV 10.0 (9.4-12.3) fl Neut % (Auto) 60.7 (34.0-67.9) % Lymph % (Auto) 20.8 L (21.8-53.1) % [place] % (Auto) 15.0 H (5.3-12.2) % Eos % (Auto) 2.6 (0.8-7.0) Baso % (Auto) 0.6 (0.1-1.2) % Neut # (Auto) 2.10 (1.78-5.38) K/mm3 Lymph # (Auto) 0.72 L (1.32-3.57) K/mm3 [place] # (Auto) 0.52 (0.30-0.82) K/mm3 Eos # (Auto) 0.09 (0.04-0.54) K/mm3 Baso # (Auto) 0.02 (0.01-0.08) K/mm3 Sodium 141 (136-145) mEq/L Potassium 4.1 (3.5-5.1) mEq/L Chloride 106 (98-107) mEq/L Carbon Dioxide 25 (21-32) mEq/L Anion Gap 14.1 (5-15) BUN 13 (7-18) mg/dL Creatinine 0.8 (0.7-1.3) mg/dL Est Cr Clr Drug Dosing 116.60 mL/min Estimated GFR (MDRD) > 60 (>60) mL/min BUN/Creatinine Ratio 16.3 (14-18) Glucose 104 (74-106) mg/dL Calcium 8.4 L (8.5-10.1) mg/dL Magnesium 1.9 (1.8-2.4) mg/dl Med Orders - Current: Current Medications Chlordiazepoxide HCl (Librium) 10 mg PO BID [facility] Last Admin: 05/10/17 08:05 Dose: 10 mg Folic Acid (Folic Acid) 1 mg PO DAILY [facility] Last Admin: 05/10/17 08:05 Dose: 1 mg Magnesium Sulfate 2 gm/ Premix 50 mls @ 25 mls/hr IV ONETIME ONE Stop: 05/10/17 11:22 Ketorolac Tromethamine (Toradol) 30 mg IVPUSH Q6H [facility] Stop: 05/10/17 11:31 Last Admin: 05/10/17 05:21 Dose: 30 mg Lorazepam (Ativan) 0 mg IVPUSH ASDIRECTED [facility] PRN Reason: Protocol Last Admin: 05/08/17 05:15 Dose: 1 mg Lorazepam (Ativan) 1 mg PO ASDIRECTED [facility] PRN Reason: Protocol Magnesium Oxide (Magnesium Oxide) 400 mg PO BID [facility] Last Admin: 05/10/17 08:05 Dose: 400 mg Nicotine (Habitrol) 21 mg TRDERM DAILY [facility] Last Admin: 05/10/17 08:06 Dose: 21 mg Ondansetron HCl (Zofran Odt) 4 mg PO Q8H PRN PRN Reason: Nausea/Vomiting Last Admin: 05/07/17 16:50 Dose: 4 mg Pantoprazole Sodium (Protonix) 40 mg PO DAILY@0700 [facility] Last Admin: 05/10/17 06:21 Dose: 40 mg Quetiapine Fumarate (Seroquel) 50 mg PO BEDTIME [facility] Last Admin: 05/09/17 20:30 Dose: 50 mg Thiamine HCl (Vitamin B-1) 100 mg PO BEDTIME [facility] Last Admin: 05/09/17 20:30 Dose: 100 mg Discontinued Medications Chlordiazepoxide HCl (Librium) 25 mg PO ONETIME ONE Stop: 05/05/17 23:22 Last Admin: 05/05/17 23:37 Dose: 25 mg Chlordiazepoxide HCl (Librium) 25 mg PO TID [facility] Last Admin: 05/06/17 08:20 Dose: 25 mg Chlordiazepoxide HCl (Librium) 50 mg PO TID [facility] Last Admin: 05/08/17 08:38 Dose: 50 mg Chlordiazepoxide HCl (Librium) 25 mg PO STAT ONE Stop: 05/06/17 12:26 Last Admin: 05/06/17 12:39 Dose: 25 mg Chlordiazepoxide HCl (Librium) 25 mg PO TID [facility] Last Admin: 05/09/17 08:45 Dose: 25 mg Clonidine HCl (Catapres) 0.1 mg PO Q8H [facility] Last Admin: 05/07/17 08:19 Dose: Not Given Clonidine HCl (Catapres) 0.1 mg PO Q12HR [facility] Last Admin: 05/09/17 08:45 Dose: 0.1 mg Enoxaparin Sodium (Lovenox) 40 mg SUBCUT DAILY [facility] Last Admin: 05/06/17 09:32 Dose: Not Given Hydromorphone HCl (Dilaudid) 0.5 mg IVPUSH Q2H PRN PRN Reason: Abdominal Pain Last Admin: 05/08/17 08:39 Dose: 0.5 mg Hydromorphone HCl (Dilaudid) 1 mg IVPUSH Q8H PRN PRN Reason: Abdominal Pain Sodium Chloride (Normal Saline) 1,000 mls @ 999 mls/hr IV ONETIME ONE Stop: 05/05/17 20:17 Last Admin: 05/05/17 19:28 Dose: 999 mls/hr Sodium Chloride (Normal Saline) 1,000 mls @ 150 mls/hr IV ASDIRECTED [facility] Multivitamins/Minerals 10 ml/ (Sodium Chloride) 1,010 mls @ 150 mls/hr IV ASDIRECTED [facility] Stop: 05/06/17 06:28 Last Admin: 05/06/17 00:52 Dose: 150 mls/hr Sodium Chloride (Normal Saline) Confirm Administered Dose 1,000 mls @ as directed .ROUTE .STK-MED ONE Stop: 05/06/17 00:37 Last Admin: 05/06/17 00:56 Dose: Not Given Magnesium Sulfate 2 gm/ Premix 50 mls @ 25 mls/hr IV ONETIME ONE Stop: 05/06/17 13:17 Last Admin: 05/06/17 12:01 Dose: Not Given Magnesium Sulfate 2 gm/ Premix 50 mls @ 25 mls/hr IV ONETIME ONE Stop: 05/06/17 19:59 Magnesium Sulfate 2 gm/ Premix 50 mls @ 25 mls/hr IV ONETIME ONE Stop: 05/07/17 11:44 Sodium Chloride (Normal Saline) 1,000 mls @ 999 mls/hr IV ASDIRECTED [facility] Stop: 05/08/17 18:16 Last Admin: 05/08/17 03:19 Dose: 125 mls/hr Sodium Chloride (Normal Saline) 1,000 mls @ 125 mls/hr IV ASDIRECTED [facility] Last Admin: 05/09/17 02:58 Dose: 125 mls/hr Magnesium Sulfate 2 gm/ Premix 50 mls @ 25 mls/hr IV ONETIME ONE Stop: 05/08/17 16:53 Last Admin: 05/08/17 15:09 Dose: 25 mls/hr Magnesium Sulfate 2 gm/ Premix 50 mls @ 25 mls/hr IV ONETIME ONE Stop: 05/09/17 09:59 Last Admin: 05/09/17 09:00 Dose: Not Given Ibuprofen (Motrin) 600 mg PO Q8H PRN PRN Reason: PAIN Last Admin: 05/07/17 10:30 Dose: 600 mg Ketorolac Tromethamine (Toradol) 60 mg IVPUSH ONETIME ONE Stop: 05/08/17 11:31 Last Admin: 05/08/17 11:26 Dose: 60 mg Lorazepam (Ativan) 1 - 2 mg PO ASDIRECTED [facility] PRN Reason: Protocol Last Admin: 05/07/17 00:06 Dose: 2 mg Metoprolol Tartrate (Lopressor) 5 mg IVPUSH Q4H PRN PRN Reason: heart rate Multivitamins/Minerals (M.V.I. Adult) 10 ml IV ONETIME ONE Stop: 05/05/17 23:37 Ondansetron HCl (Zofran) 4 mg IVPUSH ONETIME STA Stop: 05/05/17 19:18 Last Admin: 05/05/17 19:28 Dose: 4 mg Ondansetron HCl (Zofran) 4 mg IVPUSH ONETIME ONE Stop: 05/05/17 19:19 Last Admin: 05/05/17 19:42 Dose: 4 mg Ondansetron HCl (Zofran Odt) 4 mg PO Q8H [facility] Potassium Chloride (Klor-Con M20) 40 meq PO TID [facility] Stop: 05/08/17 10:01 Last Admin: 05/08/17 09:31 Dose: 40 meq Quetiapine Fumarate (Seroquel) 25 mg PO BEDTIME [facility] Last Admin: 05/08/17 20:57 Dose: 25 mg - Problem List & Annotations (1) Alcohol withdrawal SNOMED Code(s): 514471697 Status: Acute Current Visit: Yes (2) Hyperventilation syndrome SNOMED Code(s): 416891996 Status: Acute Current Visit: Yes (3) Opioid withdrawal SNOMED Code(s): 90705961 Status: Acute Current Visit: Yes (4) Abdominal pain SNOMED Code(s): 62792152 Code(s): R10.9 - UNSPECIFIED ABDOMINAL PAIN Status: Acute Current Visit: No (5) Hypertension SNOMED Code(s): 38222602 Code(s): I10 - ESSENTIAL (PRIMARY) HYPERTENSION Status: Acute Current Visit: No (6) Right upper quadrant abdominal pain SNOMED Code(s): 710095175 Code(s): R10.11 - RIGHT UPPER QUADRANT PAIN Status: Acute Current Visit: No (7) Thrombocytopenia SNOMED Code(s): 960708283 Code(s): D69.6 - THROMBOCYTOPENIA, UNSPECIFIED Status: Acute Current Visit: No - My Orders Last 24 Hours: My Active Orders 05/09/17 09:43 Up ad Polly [RC] ASDIRECTED 05/09/17 11:44 LORazepam [Ativan] 1 mg PO ASDIRECTED 05/09/17 11:45 QUEtiapine [SEROquel] 50 mg PO BEDTIME 05/10/17 09:00 chlordiazePOXIDE [Librium] 10 mg PO BID 05/10/17 09:23 Magnesium Sulfate/Water [Magnesium Sulfate 2 GM in Water 50 ML] 2 gm Premix Bag 1 bag IV ONETIME 05/11/17 05:00 BMP [BASIC METABOLIC PANEL,BMP] [CHEM] DAILY CBC WITH AUTO DIFF [HEME] DAILY MAGNESIUM [CHEM] DAILY 05/12/17 05:00 BMP [BASIC METABOLIC PANEL,BMP] [CHEM] DAILY CBC WITH AUTO DIFF [HEME] DAILY MAGNESIUM [CHEM] DAILY - Plan Plan:: Impression: ETOH withdrawal; CIWA was elevated >20; original plan was adjusted after apparent marked withdrawal. Opiod addiction on Suboxone--->query structured program Nicotine addiction Abdominal discomfort--->reportedly abnormal CT abdomen/pelvis Patient reports GB disease, will obtain results. Chronic GERD Plan: CIWA protocol Taper off librium and pain meds=NSAIDS only Court Order for 24 hour hold. GI MD suggestions provided include but not limited to [facility], Dr Karla Dailey in [place], [place]. Electrolyte replacement SA consult with probable outpatient counseling Follow up with current Suboxone provider or may change to provider in the [place] area. GI/DVT prophylaxis
[2017-05-10] MEDS ORDERED: Pneumococcal Polyvalent-23 Vaccine 0.5 ML SDV IM ONE (12:00)
[2017-05-10] MEDS ORDERED: Diphtheria,Pertussis(Acell),Tetanus Vaccine 0.5 ML SDV inactive IM ONE (12:00)
[2017-05-10 13:03] VITALS: BP 127/95
--- NOTE | 2017-05-10 13:14 | PCM.DCSUM1 ---
Discharge Summary - Hospital Course Free Text/Narrative:: 47 year old male with substance abuse history presented to the ED with reportedly mild tremors; however was going through rosita withdrawal from ETOH. Has a history of Suboxone, acutely drank a fifth daily when off of work. Had moderate to severe abdominal pain, has a history of pancreatitis. Was seen by general surgeon, Sia Farooq; psychiatrist, Dr Michael Crystal; substance abuse counselor, Hill Ghosh during his hospitalization. Abdominal pain was managed with minimal narcotics, librium was used for ETOH withdrawal. He has been provided a substance abuse referral as an outpatient by Hill Ghosh, and supplied a GI physician for pancreatitis and additional neededs, the physician is Dr Stiven Dailey at [facility] in [place], [place]; office number is [phone]. An alternative for his current physician provider of Suboxone has also been provided by Hill Ghosh. He is expected to follow up as an outpatient at [facility] with Hill Ghosh. If he returns in a similar state of altered mental status from ETOH/drugs, he will be committed to an inpatient facility. Primary Dx ETOH abuse/dependence (acute on chronic) Narcotic dependence on Suboxone Acute ofn chronic pancreatitis Tobacco dependence Condition Stable Activity As tolerated Restrictions No ETOH Suboxone as prescribed only Work No restrictions, may return to work 05/11/17; work forms have been filled out. Diet Resume usual diet - Discharge Data Discharge Date: 05/10/17 Discharge Disposition: Home, Self-Care 01 Condition: Good - Discharge Diagnosis/Problem(s) (1) Alcohol withdrawal SNOMED Code(s): 697507156 Status: Acute Current Visit: Yes (2) Hyperventilation syndrome SNOMED Code(s): 119538430 Status: Acute Current Visit: Yes (3) Opioid withdrawal SNOMED Code(s): 19864928 Status: Acute Current Visit: Yes (4) Abdominal pain SNOMED Code(s): 47741374 ICD Code: R10.9 - UNSPECIFIED ABDOMINAL PAIN Status: Acute Current Visit : No (5) Hypertension SNOMED Code(s): 39504216 ICD Code: I10 - ESSENTIAL (PRIMARY) HYPERTENSION Status: Acute Current Visit: No (6) Right upper quadrant abdominal pain SNOMED Code(s): 445191158 ICD Code: R10.11 - RIGHT UPPER QUADRANT PAIN Status: Acute Current Visit : No (7) Thrombocytopenia SNOMED Code(s): 962173833 ICD Code: D69.6 - THROMBOCYTOPENIA, UNSPECIFIED Status: Acute Current Visit: No - Patient Summary/Data Consults: Consultations 05/06/17 08:35 Consult to Physical Therapy [PT Evaluation and Treatment] [CONS] Routine Consult to Technical Editor [CONS] Routine 05/06/17 08:36 Consult to Occupational Therapy [OT Evaluation and Treatment] [CONS] Routine 05/06/17 08:40 Consult for Substance Abuse [CONS] Routine 05/06/17 14:00 Consult to Physician [CONS] Routine 05/06/17 21:15 Consult to Spiritual Care [CONS] Routine - Patient Instructions Diet: Usual Diet as Tolerated Activity: As Tolerated Driving: May Drive Today Showering/Bathing: May Shower Notify Provider of: Nausea and/or Vomiting - Discharge Plan Home Medications: Home Meds Buprenorphine HCl [Buprenorphine] 8 mg SL DAILY 04/29/17 [History] Buprenorphine HCl [Buprenorphine] 2 mg SL DAILY 05/05/17 [History] Patient Handouts: Alcohol Use Disorder, Alcohol Intoxication, [id number], Alcohol Abuse and Nutrition, Alcohol Withdrawal, [id number] Referrals: PCP,None [Primary Care Provider] - - Discharge Summary/Plan Comment DC Time >30 min.: No - General Info Date of Service: 05/05/17 Functional Status: Reports: tolerating diet, ambulating, urinating - Review of Systems General: Reports: No Symptoms HEENT: Reports: no symptoms Pulmonary: Reports: no symptoms Cardiovascular: Reports: No Symptoms Gastrointestinal: Reports: No symptoms Genitourinary: Reports: no symptoms Musculoskeletal: Reports: no symptoms Skin: Reports: no symptoms Neurological: Reports: No Symptoms Psychiatric: Reports: no symptoms - Patient Data Vitals - Most Recent: Last Vital Signs Temp 36.6 C 05/10/17 12:00 Pulse 43 L 05/10/17 04:00 Resp 16 05/10/17 12:00 BP 127/95 H 05/10/17 12:00 Pulse Ox 99 05/10/17 12:00 Weight - Most Recent: 83.37 kg I&O - Last 24 hours: Intake & Output 05/09/17 05/10/17 05/10/17 22:59 06:59 14:59 Intake Total 120 600 0 Output Total 300 Balance -180 600 0 Lab Results - Last 24 hrs: Laboratory Results - last 24 hr 05/10/17 05/10/17 Range/Units 05:20 05:20 WBC 3.46 L (4.23-9.07) K/mm3 RBC 4.01 L (4.63-6.08) M/mm3 Hgb 12.0 L (13.7-17.5) gm/L Hct 35.5 L (40.1-51.0) % MCV 88.5 (79.0-92.2) fl MCH 29.9 (25.7-32.2) pg MCHC 33.8 (32.2-35.5) g/dl RDW Std Deviation 42.2 (35.1-43.9) fL Plt Count 123 L (163-337) K/mm3 MPV 10.0 (9.4-12.3) fl Neut % (Auto) 60.7 (34.0-67.9) % Lymph % (Auto) 20.8 L (21.8-53.1) % [place] % (Auto) 15.0 H (5.3-12.2) % Eos % (Auto) 2.6 (0.8-7.0) Baso % (Auto) 0.6 (0.1-1.2) % Neut # (Auto) 2.10 (1.78-5.38) K/mm3 Lymph # (Auto) 0.72 L (1.32-3.57) K/mm3 [place] # (Auto) 0.52 (0.30-0.82) K/mm3 Eos # (Auto) 0.09 (0.04-0.54) K/mm3 Baso # (Auto) 0.02 (0.01-0.08) K/mm3 Sodium 141 (136-145) mEq/L Potassium 4.1 (3.5-5.1) mEq/L Chloride 106 (98-107) mEq/L Carbon Dioxide 25 (21-32) mEq/L Anion Gap 14.1 (5-15) BUN 13 (7-18) mg/dL Creatinine 0.8 (0.7-1.3) mg/dL Est Cr Clr Drug Dosing 116.60 mL/min Estimated GFR (MDRD) > 60 (>60) mL/min BUN/Creatinine Ratio 16.3 (14-18) Glucose 104 (74-106) mg/dL Calcium 8.4 L (8.5-10.1) mg/dL Magnesium 1.9 (1.8-2.4) mg/dl Med Orders - Current: Current Medications Chlordiazepoxide HCl (Librium) 10 mg PO BID [facility] Last Admin: 05/10/17 08:05 Dose: 10 mg Folic Acid (Folic Acid) 1 mg PO DAILY [facility] Last Admin: 05/10/17 08:05 Dose: 1 mg Lorazepam (Ativan) 0 mg IVPUSH ASDIRECTED [facility] PRN Reason: Protocol Last Admin: 05/08/17 05:15 Dose: 1 mg Lorazepam (Ativan) 1 mg PO ASDIRECTED [facility] PRN Reason: Protocol Magnesium Oxide (Magnesium Oxide) 400 mg PO BID [facility] Last Admin: 05/10/17 08:05 Dose: 400 mg Nicotine (Habitrol) 21 mg TRDERM DAILY [facility] Last Admin: 05/10/17 08:06 Dose: 21 mg Ondansetron HCl (Zofran Odt) 4 mg PO Q8H PRN PRN Reason: Nausea/Vomiting Last Admin: 05/07/17 16:50 Dose: 4 mg Pantoprazole Sodium (Protonix) 40 mg PO DAILY@0700 [facility] Last Admin: 05/10/17 06:21 Dose: 40 mg Quetiapine Fumarate (Seroquel) 50 mg PO BEDTIME [facility] Last Admin: 05/09/17 20:30 Dose: 50 mg Thiamine HCl (Vitamin B-1) 100 mg PO BEDTIME [facility] Last Admin: 05/09/17 20:30 Dose: 100 mg Discontinued Medications Chlordiazepoxide HCl (Librium) 25 mg PO ONETIME ONE Stop: 05/05/17 23:22 Last Admin: 05/05/17 23:37 Dose: 25 mg Chlordiazepoxide HCl (Librium) 25 mg PO TID [facility] Last Admin: 05/06/17 08:20 Dose: 25 mg Chlordiazepoxide HCl (Librium) 50 mg PO TID [facility] Last Admin: 05/08/17 08:38 Dose: 50 mg Chlordiazepoxide HCl (Librium) 25 mg PO STAT ONE Stop: 05/06/17 12:26 Last Admin: 05/06/17 12:39 Dose: 25 mg Chlordiazepoxide HCl (Librium) 25 mg PO TID [facility] Last Admin: 05/09/17 08:45 Dose: 25 mg Clonidine HCl (Catapres) 0.1 mg PO Q8H [facility] Last Admin: 05/07/17 08:19 Dose: Not Given Clonidine HCl (Catapres) 0.1 mg PO Q12HR [facility] Last Admin: 05/09/17 08:45 Dose: 0.1 mg Diphtheria/Tetanus/Acell Pertussis (Boostrix) 0.5 ml IM .ONCE ONE Stop: 05/10/17 12:01 Enoxaparin Sodium (Lovenox) 40 mg SUBCUT DAILY [facility] Last Admin: 05/06/17 09:32 Dose: Not Given Hydromorphone HCl (Dilaudid) 0.5 mg IVPUSH Q2H PRN PRN Reason: Abdominal Pain Last Admin: 05/08/17 08:39 Dose: 0.5 mg Hydromorphone HCl (Dilaudid) 1 mg IVPUSH Q8H PRN PRN Reason: Abdominal Pain Sodium Chloride (Normal Saline) 1,000 mls @ 999 mls/hr IV ONETIME ONE Stop: 05/05/17 20:17 Last Admin: 05/05/17 19:28 Dose: 999 mls/hr Sodium Chloride (Normal Saline) 1,000 mls @ 150 mls/hr IV ASDIRECTED [facility] Multivitamins/Minerals 10 ml/ (Sodium Chloride) 1,010 mls @ 150 mls/hr IV ASDIRECTED [facility] Stop: 05/06/17 06:28 Last Admin: 05/06/17 00:52 Dose: 150 mls/hr Sodium Chloride (Normal Saline) Confirm Administered Dose 1,000 mls @ as directed .ROUTE .STK-MED ONE Stop: 05/06/17 00:37 Last Admin: 05/06/17 00:56 Dose: Not Given Magnesium Sulfate 2 gm/ Premix 50 mls @ 25 mls/hr IV ONETIME ONE Stop: 05/06/17 13:17 Last Admin: 05/06/17 12:01 Dose: Not Given Magnesium Sulfate 2 gm/ Premix 50 mls @ 25 mls/hr IV ONETIME ONE Stop: 05/06/17 19:59 Magnesium Sulfate 2 gm/ Premix 50 mls @ 25 mls/hr IV ONETIME ONE Stop: 05/07/17 11:44 Sodium Chloride (Normal Saline) 1,000 mls @ 999 mls/hr IV ASDIRECTED [facility] Stop: 05/08/17 18:16 Last Admin: 05/08/17 03:19 Dose: 125 mls/hr Sodium Chloride (Normal Saline) 1,000 mls @ 125 mls/hr IV ASDIRECTED [facility] Last Admin: 05/09/17 02:58 Dose: 125 mls/hr Magnesium Sulfate 2 gm/ Premix 50 mls @ 25 mls/hr IV ONETIME ONE Stop: 05/08/17 16:53 Last Admin: 05/08/17 15:09 Dose: 25 mls/hr Magnesium Sulfate 2 gm/ Premix 50 mls @ 25 mls/hr IV ONETIME ONE Stop: 05/09/17 09:59 Last Admin: 05/09/17 09:00 Dose: Not Given Magnesium Sulfate 2 gm/ Premix 50 mls @ 25 mls/hr IV ONETIME ONE Stop: 05/10/17 11:22 Last Admin: 05/10/17 09:53 Dose: 25 mls/hr Ibuprofen (Motrin) 600 mg PO Q8H PRN PRN Reason: PAIN Last Admin: 05/07/17 10:30 Dose: 600 mg Ketorolac Tromethamine (Toradol) 60 mg IVPUSH ONETIME ONE Stop: 05/08/17 11:31 Last Admin: 05/08/17 11:26 Dose: 60 mg Ketorolac Tromethamine (Toradol) 30 mg IVPUSH Q6H [facility] Stop: 05/10/17 11:31 Last Admin: 05/10/17 11:40 Dose: 30 mg Lorazepam (Ativan) 1 - 2 mg PO ASDIRECTED [facility] PRN Reason: Protocol Last Admin: 05/07/17 00:06 Dose: 2 mg Metoprolol Tartrate (Lopressor) 5 mg IVPUSH Q4H PRN PRN Reason: heart rate Multivitamins/Minerals (M.V.I. Adult) 10 ml IV ONETIME ONE Stop: 05/05/17 23:37 Ondansetron HCl (Zofran) 4 mg IVPUSH ONETIME STA Stop: 05/05/17 19:18 Last Admin: 05/05/17 19:28 Dose: 4 mg Ondansetron HCl (Zofran) 4 mg IVPUSH ONETIME ONE Stop: 05/05/17 19:19 Last Admin: 05/05/17 19:42 Dose: 4 mg Ondansetron HCl (Zofran Odt) 4 mg PO Q8H [facility] Pneumococcal Polyvalent Vaccine (Pneumovax 23) 0.5 ml IM .ONCE ONE Stop: 05/10/17 12:01 Potassium Chloride (Klor-Con M20) 40 meq PO TID [facility] Stop: 05/08/17 10:01 Last Admin: 05/08/17 09:31 Dose: 40 meq Quetiapine Fumarate (Seroquel) 25 mg PO BEDTIME [facility] Last Admin: 05/08/17 20:57 Dose: 25 mg - Exam Quality Assessment: Reports: DVT prophylaxis General: Reports: alert, oriented, cooperative, no acute distress HEENT: Reports: Pupils equal, Pupils reactive, EOMI Neck: Reports: supple, trachea midline, no JVD Lungs: Reports: Normal respiratory effort Cardiovascular: Reports: Regular Rate, Bradycardia Abdomen: Reports: bowel sounds present, soft, no tenderness, no distension (Male) Exam: Deferred Rectal (Males) Exam: Deferred Back Exam: Reports: Normal Inspection Extremities: Reports: normal pulses Skin: Reports: warm Neurological: Reports: no new focal deficit, normal gait, normal speech Psy/Mental Status: Reports: alert, normal affect, normal mood *Q Meaningful Use (DIS) - VTE *Q VTE Criteria *Q: - Stroke *Q Stroke Criteria *Q: - AMI *Q AMI Criteria *Q:
== END 2017-05-10 13:30 | disposition home or self-care (01) | DRG 773 ==
LOC: JD.ED 18:52 → JD.MS 22:35 → UNDOADMOB 22:43 → JD.MS 22:43 → MERGE 23:55 → JD.ICU 23:55 → OBSVTOIN 23:55
PROVIDERS: ADMIT Internal Medicine Cardiovascular Disease; ATTEND Internal Medicine Cardiovascular Disease
DX: F10.239 Alcohol dependence with withdrawal, unspecified (principal); F11.23 Opioid dependence with withdrawal; F45.8 Other somatoform disorders; R10.11 Right upper quadrant pain; K86.1 Other chronic pancreatitis; D69.6 Thrombocytopenia, unspecified; I10 Essential (primary) hypertension; F41.8 Other specified anxiety disorders; K21.9 Gastro-esophageal reflux disease without esophagitis; F17.200 Nicotine dependence, unspecified, uncomplicated; Z79.899 Other long term (current) drug therapy; Z88.5 Allergy status to narcotic agent
CPT/HCPCS: 36415; 36600; 80048; 80053; 80306; 81001; 82803; 83605; 83690; 83735; 85025; 86140; 90715; 90732; 96361; 96374; 97162-GP; 97165-GO; 99223; 99232; 99238; 99284; 99285-25; A9270-GY; G0009; G0480; J1170; J1885; J2060; J2405; J3475; J7040